=== PATIENT | male | born 1955 | race Caucasian/White ===

== ENCOUNTER 2018-07-09 10:16 | Observation (INO) | payer BC ==
[2018-07-08 12:35] VITALS: BMI 34.5
--- NOTE | 2018-07-09 08:15 | HP ---
HISTORY OF PRESENT ILLNESS: Mr. Pereyra returns to our office due to low back pain, continued symptoms of neurogenic claudication. The patient states that since his last visit in 2016, he was getting some injections, which helped for a period of time. However, the most recent series has not been beneficial at all. The patient states that he cannot stand for more than a minute without having to lean on something or sit down due to the pain going down both legs. The patient has to take breaks when he walks to the [employer] where he works. He is also complaining about balance and clumsy fingers. The patient states that it takes him some time to do the buttons on the top of his collar, and just the other day, he was unable to thread a needle. The patient states that the thumb on the left hand is numb. REVIEW OF SYSTEMS: A 10-point review of systems has been completed and is negative other than stated in the above HPI. PAST MEDICAL HISTORY: Hep C, kidney failure, IBS, knee problem, sleep apnea, cancer, stomach disease. SURGICAL HISTORY: Tonsils, knee surgery, vasectomy, lumbar spinal fusion in 2011, kidney cancer removal, left shoulder repair, ulcer repair. FAMILY HISTORY: Father was at 74, diagnosed with cancer. Mother at 60, diagnosed with cancer. Children alive. SOCIAL HISTORY: Smoking, the patient is a smoker. Drinks alcohol. Does not use any other illicit drugs. He is sexually active. , with 4 children. director regulatory compliance. MEDICATIONS: 1. Meloxicam. 2. Zanaflex. 3. [place]. ALLERGIES: NO KNOWN DRUG ALLERGIES. PHYSICAL EXAMINATION: HEENT. Head is normocephalic and atraumatic. Extraocular movements are intact. Hearing is intact. Moist mucous membranes. NECK: Normal, soft, supple. No masses are noted. Range of motion is intact, nonpainful. NEUROLOGIC: Awake, alert, oriented x3. Memory, attention, fund of knowledge, and language are normal. Cranial nerves; cranial nerves are grossly intact. Upper extremities 5/5 bilateral strength, wrist extension, finger extension, finger intrinsics. 4/5 bilateral deltoids. 4+/5 left biceps, triceps. Sensation equal bilaterally. Reflexes are symmetric, brisk. Lower extremities, normal. Does not disclose any focal motor weakness or deep tendon asymmetry. 5/5 bilateral hip flexion, knee flexion, knee extension, dorsiflexion, plantar flexion, EHL. Negative Babinski's. No ankle clonus bilaterally. Brisk patellar reflexes. Tender over right SI joint. IMAGING: MRI of the lumbar spine, severe stenosis at L1-L2, L2-L3, L3-L4. Dr. Pineda has offered surgery due to adjacent segment disease, L1 through L3. Job ID: [id number]
[2018-07-09] MEDS ORDERED: Fentanyl 100 MCG/2 ML VIAL ONE ×2 (10:42→17:10)
[2018-07-09] MEDS ORDERED: Ketamine 50 MG/ML (10ML VIAL) ONE (11:11)
[2018-07-09 11:15] LABS: #Basophils 0.1 thou/uL (0.0-0.2); #Eosinphils 0.7 thou/uL (0.0-0.7); #Lymphocytes 1.7 thou/uL (1.20-3.40); #Monocytes 0.9 thou/uL (0.11-0.59); #Neutrophils 4.3 thou/uL (1.40-6.50); %Basophils 0.9 % (0.0-1.0); %Eosinophils 8.8 % (0.0-10.0); %Monocytes 11.4 % (0.0-10.0); %Neutrophils 56.9 % (42.0-75.0); Mean Corpuscular HGB CONC 32.3 g/dL (32.0-36.0); Mean Corpuscular Hemoglobin 29.2 pg (27.0-31.0); Mean Corpuscular Volume 90.4 fL (78.0-98.0); Mean Platelet Volume 6.2 fL (7.4-10.4); Platelet Count 341 thou/uL (130-400); RBC Distribution Width 13.1 % (11.5-14.5); Red Blood Cell (RBC) Count 5.46 mill/uL (4.70-6.10); White Blood Cell (WBC) Count 7.6 thou/uL (4.8-10.8)
[2018-07-09] MEDS ORDERED: Thrombin 5000 UNITS/5 ML VIAL ONE (11:19)
[2018-07-09] MEDS ORDERED: Bupivacaine HCl 0.5%/Epinephrine 1:200,000/PF 30 ml Vial ONE (11:19)
[2018-07-09] MEDS ORDERED: Sodium Chloride 0.9% 10 ML ONE (11:19)
[2018-07-09 11:20] LABS: PTT 28.2 SEC (22.9-36.1); Prothrombin Time 13.5 SEC (12.0-14.7)
[2018-07-09 11:53] LABS: Anion Gap 12 mmol/L (10-20); BUN (Urea Nitrogen) 19 mg/dL (8.4-25.7); Calc. Creatinine Clearance 134 mL/min (70-130); Calcium 9.6 mg/dL (7.8-10.44); Carbon Dioxide 29 mmol/L (22-29); Chloride 103 mmol/L (98-107); Estimated GFR-MDRD 88; Glucose 99 mg/dL (70-105); Potassium 4.3 mmol/L (3.5-5.1); Sodium 140 mmol/L (136-145)
[2018-07-09] MEDS ORDERED: HYDROmorphone 2 MG/ML VIAL ONE ×2 (12:35→17:58)
[2018-07-09] MEDS ORDERED: PHENYLEPHRINE-NS 100 MCG/ML 10 ML SYRINGE ONE ×3 (12:52→15:19)
[2018-07-09] MEDS ORDERED: Phenylephrine HCL 10 MG/ML VIAL ONE (13:48)
[2018-07-09] MEDS ORDERED: Ondansetron PF 4 MG/2 ML Vial ONE ×3 (14:32→15:19)
[2018-07-09] MEDS ORDERED: ePHEDrine 50 MG/ML VIAL ONE (15:19)
[2018-07-09] MEDS ORDERED: Dexamethasone 20 MG/5 ML VIAL ONE (15:19)
[2018-07-09] MEDS ORDERED: Lidocaine 1% PF 5 ML VIAL ONE (15:19)
[2018-07-09] MEDS ORDERED: Rocuronium Bromide 10 MG/ML (10ML VIAL) ONE (15:19)
[2018-07-09] MEDS ORDERED: Glycopyrrolate 0.2 MG/ML 5 ML SYRINGE ONE ×2 (15:19)
[2018-07-09] MEDS ORDERED: PROPOFOL 200 MG/20 ML VIAL ONE (15:19)
[2018-07-09] MEDS ORDERED: Sodium Chloride 0.9% 20 ML ONE (15:29)
[2018-07-09] MEDS ORDERED: SUGAMMADEX SODIUM 200 MG/2 ML VIAL ONE (15:39)
[2018-07-09] MEDS ORDERED: Morphine 2 MG/ML SYRINGE SLOW IVP PRN (16:43)
[2018-07-09] MEDS ORDERED: diphenhydrAMINE 50 MG/ML VIAL IVP PRN (16:43)
[2018-07-09] MEDS ORDERED: HYDROcodone/Acetaminophen 10/325 mg Tablet PO PRN (16:43)
[2018-07-09] MEDS ORDERED: Acetaminophen/Codeine 30-300mg Tablet PO PRN ×2 (16:43)
[2018-07-09] MEDS ORDERED: Bisacodyl 10 MG SUPP PR PRN (16:43)
[2018-07-09] MEDS ORDERED: Mag-Al 1200 mg/1200 mg/30 ML UDCUP PO PRN (16:43)
[2018-07-09] MEDS ORDERED: diphenhydrAMINE 25 MG CAP PO PRN (16:43)
[2018-07-09] MEDS ORDERED: Ondansetron PF 4 MG/2 ML Vial IVP PRN (16:43)
[2018-07-09] MEDS ORDERED: traMADol HCl 50 MG TAB PO PRN ×2 (16:43)
[2018-07-09] MEDS ORDERED: Acetaminophen 650 MG Suppository PR PRN (16:43)
[2018-07-09] MEDS ORDERED: Milk Of Magnesia 30 ML UDCUP PO PRN (16:43)
[2018-07-09] MEDS ORDERED: Promethazine 25 MG TAB PO PRN (16:43)
[2018-07-09] MEDS ORDERED: Promethazine HCl 12.5 MG SUPP PR PRN (16:43)
[2018-07-09] MEDS ORDERED: Acetaminophen 325 MG TAB PO PRN (16:43)
[2018-07-09] MEDS ORDERED: Promethazine HCl 25 MG/ML VIAL IM PRN (16:43)
[2018-07-09] MEDS ORDERED: Scopolamine 1.5 mg/72 hour Patch TD SCH (16:45)
[2018-07-09] MEDS: tiZANidine HCl 4 MG TAB PO PRN (20:22)
[2018-07-09] MEDS: Sodium Chloride 0.9% 1,000 ML IV SCH (20:57)
[2018-07-09] MEDS: HYDROcodone/Acetaminophen 10/325 mg Tablet PO PRN (22:34)
--- NOTE | 2018-07-09 23:55 | OP ---
DATE OF PROCEDURE: 07/09/2018 SENIOR BUDGET ANALYST: None. PREOPERATIVE INDICATION: Treat pain and prevent neurological deterioration. PREOPERATIVE DIAGNOSIS: Prior L4 to S1 fusion, multilevel lumbar stenosis above fusion at L1-L2, L2-L3 and L3-L4 with severe neurogenic claudication. POSTOPERATIVE DIAGNOSIS: Prior L4 to S1 fusion, multilevel lumbar stenosis above fusion at L1-L2, L2-L3 and L3-L4 with severe neurogenic claudication. PROCEDURES PERFORMED: Decompressive laminectomy, medial facetectomy, foraminotomy, L1-L2, L2-L3, L3-L4. PREOPERATIVE MEDICATIONS: Ancef 2 g IV. DRAIN NUMBER: Zero. DRAIN TYPE: None. DESCRIPTION OF PROCEDURE: The patient was brought to the operating room. General endotracheal anesthesia was induced. The patient was positioned prone on the operating table with his chest and hips supported by gel-filled chest rolls. A lateral fluoro radiograph was used to plan our incision. The lumbar skin was sterilely prepped and draped. We marked out an incision that extended his previous incision superiorly. We opened this with a 10 blade knife. We controlled bleeding with gentle bipolar cautery. We opened subcutaneous tissues with a monopolar cautery to the thoracodorsal fascia. We incised the fascia in midline and reflected the paraspinal muscles off the spinous process and lamina of L1 to L3. Self-retaining retractors were placed. A lateral fluoro radiograph confirmed the levels upon which we were operating. We then used an Adson rongeur to remove most of the L1, all of the L2, all of the L3 spinous process. We identified the inferior margin of the L3 lamina with angled curette, and using 3 mm Kerrison rongeur, we fashioned a laminectomy from there all the way up to L1. Due to scar tissue in the area, we had to bring the operative microscope in and complete our decompression inferiorly. Under microscopic magnification and using microsurgical techniques, we carefully drilled away the remnants of the L4 lamina. We worked our way down the lamina with a 3 mm Kerrison rongeur. Once we had the canal open all the way to the scar tissue beneath the L4 lamina, we widened our laminectomy defect by performing medial facetectomies with Kerrison rongeurs. We removed overgrown facet and yellow ligament at each of the interspaces until the traversing and exiting L2, L3, and L4 nerve roots were well decompressed. We performed foraminotomies over the exiting nerve roots. During our dissection of the right side at L3-L4, the dura was densely adherent to the disk space and there was disk material inferiorly, it was also adherent to the medial portion of the pedicle and the facet joint. During our dissection there, we encountered a durotomy. Using microsurgical techniques and a 6-0 Prolene, we closed this durotomy in an interrupted fashion. We then removed herniated disk contents from under the dura into the lateral recess, was well decompressed, and the L4 nerve root was under no stretch whatsoever. We irrigated copiously with bacitracin irrigation. We waxed the bone edges. We applied a Valsalva and saw no further CSF egress. We reinforced our closure with DuraSeal tissue sealant. This was after copious amounts of bacitracin irrigation. We treated the wound with vancomycin powder and we closed the wound in anatomical layers. We applied sterile dressing. This was a clean case, no contamination. Job ID: [id number]
[2018-07-10] MEDS: CEFAZOLIN 2 GM in Premix Bag 1 BAG IVPB SCH ×2 (02:04→11:21)
[2018-07-10] MEDS: Sodium Chloride 0.9% 1,000 ML IV SCH (04:12)
[2018-07-10] MEDS ORDERED: Tamsulosin HCl 0.4 MG CAP PO SCH (06:00)
[2018-07-10] MEDS: HYDROcodone/Acetaminophen 10/325 mg Tablet PO PRN ×2 (06:28→11:19)
--- NOTE | 2018-07-10 06:57 | PRG ---
DATE OF SERVICE: 07/10/2018 I saw Mr. Pereyra in his hospital room this morning. He is one day out from repeat lumbar decompression, this surgery above the previously fused segments. Overnight, his head of bed was flat due to durotomy closure, and he has been doing well. He reports his legs feel better than the day before surgery. He has not been walking yet. I do not see any fevers recorded. His blood pressure was little low this morning. On examination, he has good motor and sensory function in the lower extremities. In fact, his sensation in the legs is better than it was before surgery. Plan today is to raise his head of bed and let him eat breakfast and ambulate. When he is safe for his activities of daily living, he can be discharged. I anticipate that would happen around lunchtime today. I went over home going restrictions, activity modifications, wound care, and followup. Job ID: [id number]
--- NOTE | 2018-07-10 08:17 | PDOC.PN ---
- Subjective Encounter Start Date: 07/10/18 Encounter Start Time: 10:15 Subjective: Patient doing well. Ambulating without difficulty. Feeling better than -: before surgery. No Fever. No Neuro signs. No N/V. No SOB or chest pain. -: Off O2 now and sating 95%. - Objective MAR Reviewed: Yes Vital Signs & Weight: Vital Signs (12 hours) Temp Pulse Resp BP Pulse Ox 07/10/18 03:10 97.6 F 60 18 98/59 L 95 07/09/18 23:57 97.9 F 71 18 93/53 L 94 L 07/09/18 20:47 97.8 F 78 18 121/74 94 L Weight Weight 234 lb I&O: 07/09/18 07/10/18 07/11/18 06:59 06:59 06:59 Intake Total 320 Output Total 750 Balance -430 Result Diagrams: 07/10/18 08:29 07/10/18 08:29 Phys Exam - Physical Examination Constitutional: NAD HEENT: moist MMs Respiratory: no wheezing, no rales, no rhonchi, clear to auscultation bilateral Cardiovascular: RRR, no significant murmur Gastrointestinal: soft, positive bowel sounds Musculoskeletal: no edema back with dressing C/D/I Neurological: non-focal, moves all 4 limbs Psychiatric: normal affect, A&O x 3 Dx/Plan (1) Hepatitis C Code(s): B19.20 - UNSPECIFIED VIRAL HEPATITIS C WITHOUT HEPATIC COMA Status: Chronic (2) PUD (peptic ulcer disease) Code(s): K27.9 - PEPTIC ULC, SITE UNSP, UNSP AC OR CHR, W/O HEMOR OR PERF Status: Chronic Comment: keep on PPI (3) Irritable bowel syndrome (IBS) Status: Chronic (4) JYOTHI (obstructive sleep apnea) Code(s): G47.33 - OBSTRUCTIVE SLEEP APNEA (ADULT) (PEDIATRIC) Status: Chronic Comment: Patient is on O2 since surgery, try and wean, if not able may need further workup - Plan cont current plan of care, PT/OT, out of bed/ambulate Patient cleared to discharge from out standpoint. -: D/C when ok with primary team. * . - Discharge Day Encounter end time: 10:30
[2018-07-10] MEDS: tiZANidine HCl 4 MG TAB PO PRN (08:51)
[2018-07-10 09:09] LABS: #Eosinphils 0.1 thou/uL (0.0-0.7); #Lymphocytes 1.3 thou/uL (1.20-3.40); #Monocytes 1.9 thou/uL (0.11-0.59); %Basophils 0.2 % (0.0-1.0); %Eosinophils 0.3 % (0.0-10.0); %Lymphocytes 7.2 % (21.0-51.0); %Monocytes 10.5 % (0.0-10.0); %Neutrophils 81.9 % (42.0-75.0); Hemoglobin 13.9 g/dL (14.0-18.0); Mean Corpuscular HGB CONC 31.8 g/dL (32.0-36.0); Mean Corpuscular Hemoglobin 29.4 pg (27.0-31.0); Mean Corpuscular Volume 92.4 fL (78.0-98.0); Platelet Count 338 thou/uL (130-400); Red Blood Cell (RBC) Count 4.73 mill/uL (4.70-6.10); White Blood Cell (WBC) Count 18.3 thou/uL (4.8-10.8)
[2018-07-10 09:20] LABS: Anion Gap 13 mmol/L (10-20); BUN (Urea Nitrogen) 18 mg/dL (8.4-25.7); Calc. Creatinine Clearance 136 mL/min (70-130); Carbon Dioxide 27 mmol/L (22-29); Chloride 103 mmol/L (98-107); Estimated GFR-MDRD 90; Glucose 111 mg/dL (70-105); Potassium 4.5 mmol/L (3.5-5.1); Sodium 138 mmol/L (136-145)
[2018-07-10 11:41] VITALS: BP 113/72; TEMP 98.8
== END 2018-07-10 12:57 | disposition home or self-care (01) ==
LOC: SDC 10:16 → SJJU 16:43
PROVIDERS: ADMIT Neurological Surgery; ATTEND Neurological Surgery
PROC: 01NB0ZZ Release Lumbar Nerve, Open Approach (ICD-10-PCS; principal; 2018-07-09)
DX: M48.062 Spinal stenosis, lumbar region with neurogenic claudication (principal); K58.9 Irritable bowel syndrome, unspecified; F17.290 Nicotine dependence, other tobacco product, uncomplicated; G47.33 Obstructive sleep apnea (adult) (pediatric); B18.2 Chronic viral hepatitis C; K27.9 Peptic ulcer, site unspecified, unspecified as acute or chronic, without hemorrhage or perforation; Z79.1 Long term (current) use of non-steroidal anti-inflammatories (NSAID); Z79.899 Other long term (current) drug therapy; Z88.5 Allergy status to narcotic agent; Z98.1 Arthrodesis status
CPT/HCPCS: 36415; 76000; 80048; 83880; 85025; 85610; 85730; 96365; 96366; G0378; J0131; J0670; J0690; J1100; J1170; J2001; J2370; J2405; J2704; J3010; J3370; J3490

== ENCOUNTER 2018-12-18 07:10 | Inpatient (IN) | payer BC ==
--- NOTE | 2018-12-16 21:02 | HP ---
HISTORY OF PRESENT ILLNESS: Mr. Pereyra is known to our office. He is recovering from L1 through L4 laminectomy above his prior fusion. He has had a superficial infection, which has not cleared up and he is pleased with his surgical results. He states that his leg pains are gone; however, he would like to discuss surgical options for his cervical spine. He states that his balance has been deteriorating. He has known severe spinal stenosis at C3-C4 and C5-C6. His back pain was so severe, that he wanted to proceed with that intervention first and is now ready to discuss cervical intervention. REVIEW OF SYSTEMS: A 10-point review of systems has been completed and is negative other than stated in the above HPI. PAST MEDICAL HISTORY: Possible hepatitis C, kidney failure, IBS, knee problems, sleep apnea, cancer, stomach disease. PAST SURGICAL HISTORY: Tonsillectomy, knee surgery, vasectomy, lumbar spinal fusion, lumbar laminectomy, kidney cancer removal, left shoulder repair, ulcer surgery. FAMILY HISTORY: Father is , diagnosed with cancer. Mother is , diagnosed with cancer. SOCIAL HISTORY: The patient is a smoker. Drinks alcohol on occasion. Does not use any illicit drugs. Sexually active, and . MEDICATIONS: 1. Meloxicam. 2. Zanaflex. 3. [place]. ALLERGIES: NO KNOWN DRUG ALLERGIES. PHYSICAL EXAMINATION: CONSTITUTIONAL: He is awake, alert, and oriented x3. NEUROLOGIC: Speech is spontaneous and fluent. Cranial nerves are grossly intact. RESPIRATIONS: Normal work of breathing on room air. EXTREMITIES: Upper extremities, 5/5 bilateral strength in wrist extension, finger extension, finger intrinsics, 4/5 bilateral deltoids, 4+/5 left biceps and triceps. Sensation equal bilaterally. Reflexes symmetric. Gait and station; tandem gait is off balance. Sensory, right greater than left numbness. IMAGING DATA: MRI, C3-4 and C5-6 cord compression, mild to moderate degenerative disk disease at C4-C5 and C6-C7. Flexion-extension x-rays are stable. ASSESSMENT AND PLAN: Cervical stenosis with myelopathy. Dr. Pineda has offered surgery. Now, he has healed well from his lumbar surgery. We are offering cervical ACDF at C3-C4 and C5-C6. The patient states that he understands the risks and is willing to proceed with surgery. Job ID: [id number]
[2018-12-17 08:51] VITALS: BMI 35.9
[2018-12-18 07:58] LABS: #Basophils 0.1 thou/uL (0.0-0.2); #Eosinphils 0.5 thou/uL (0.0-0.7); #Lymphocytes 1.5 thou/uL (1.20-3.40); #Monocytes 0.8 thou/uL (0.11-0.59); #Neutrophils 4.3 thou/uL (1.40-6.50); %Basophils 1.5 % (0.0-1.0); %Eosinophils 6.8 % (0.0-10.0); %Lymphocytes 20.8 % (21.0-51.0); %Monocytes 11.5 % (0.0-10.0); %Neutrophils 59.5 % (42.0-75.0); Hemoglobin 16.8 g/dL (14.0-18.0); Mean Corpuscular HGB CONC 33.4 g/dL (32.0-36.0); Mean Corpuscular Hemoglobin 29.8 pg (27.0-31.0); Platelet Count 286 thou/uL (130-400); RBC Distribution Width 13.3 % (11.5-14.5); Red Blood Cell (RBC) Count 5.66 mill/uL (4.70-6.10); White Blood Cell (WBC) Count 7.2 thou/uL (4.8-10.8)
[2018-12-18 08:06] LABS: PTT 28.2 SEC (22.9-36.1); Prothrombin Time 13.2 SEC (12.0-14.7)
[2018-12-18 08:18] LABS: Anion Gap 10 mmol/L (10-20); BUN (Urea Nitrogen) 18 mg/dL (8.4-25.7); Calc. Creatinine Clearance 129 mL/min (70-130); Calcium 9.7 mg/dL (7.8-10.44); Carbon Dioxide 27 mmol/L (23-31); Chloride 104 mmol/L (98-107); Estimated GFR-MDRD 82; Glucose 101 mg/dL (80-115); Potassium 3.9 mmol/L (3.5-5.1); Sodium 137 mmol/L (136-145)
[2018-12-18] MEDS ORDERED: Thrombin 5000 UNITS/5 ML VIAL ONE (09:02)
[2018-12-18] MEDS ORDERED: Sodium Chloride 0.9% 10 ML ONE ×2 (09:02→16:03)
[2018-12-18] MEDS ORDERED: Fentanyl 100 MCG/2 ML VIAL ONE ×2 (09:05→14:29)
[2018-12-18] MEDS ORDERED: HYDROmorphone 2 MG/ML VIAL ONE (11:40)
[2018-12-18] MEDS ORDERED: Promethazine HCl 25 MG/ML VIAL SLOW IVP PRN (13:52)
[2018-12-18] MEDS ORDERED: HYDROmorphone 2 MG/ML VIAL SLOW IVP PRN (13:52)
[2018-12-18] MEDS ORDERED: PACU-Morphine 4MG/ML VIAL SLOW IVP PRN (13:52)
[2018-12-18] MEDS ORDERED: Ondansetron HCl/PF 4 MG/2 ML Vial IVP PRN (13:52)
[2018-12-18] MEDS ORDERED: Morphine Sulfate 2 MG/ML SYRINGE SLOW IVP PRN (13:52)
[2018-12-18] MEDS ORDERED: Promethazine HCl 25 MG/ML VIAL IM PRN (13:52)
[2018-12-18] MEDS ORDERED: Meperidine HCl/PF 25 MG/ML VIAL SLOW IVP PRN (13:52)
--- NOTE | 2018-12-18 15:06 | OP ---
DATE OF PROCEDURE: 12/18/2018 FLAGMAN: Barbara Whitaker PA-C PREOPERATIVE INDICATION: Prevent neurological deterioration. PREOPERATIVE DIAGNOSES: Cervical intervertebral disk disease with cord compression and myelopathy, C3-C4 and C5-C6. POSTOPERATIVE DIAGNOSES: Cervical intervertebral disk disease with cord compression and myelopathy, C3-C4 and C5-C6. PROCEDURES PERFORMED: 1. Anterior cervical diskectomy, intervertebral arthrodesis, placement of intervertebral biomechanical device, anterior cervical plating, C3-C4 and C5-C6 (two separate plates). 2. Local morselized autograft. 3. Morselized allograft. 4. Operating microscope. PREOPERATIVE MEDICATIONS: Ancef 2 g IV. DRAIN NUMBER: Zero. DRAIN TYPE: None. DESCRIPTION OF PROCEDURE: The patient was brought to the operating room. General endotracheal anesthesia was induced. The patient was positioned on the operating table with his head supported by a gel-filled donut-shaped headrest. A lateral fluoro radiograph was used to plan our incision. The right side of the neck was sterilely prepped and draped. We opened it with a 10 blade knife and controlled bleeding with bipolar cautery. We dissected sharply to the platysma and we cut this muscle in line with our incision. We continued our dissection medial to the sternocleidomastoid and lateral to the trachea and esophagus. We arrived to the prevertebral space. We put a marker on the anterior surface of the spine and took a lateral fluoro radiograph to confirm the level upon which we were operating. We then elevated the longus colli muscles off the anterior surface of C3, C4, as well as C5, and C6. Self-retaining retractors placed under the longus colli muscles at C3-C4 and distraction pins placed in both of the vertebrae. We distracted it across the interspace and incised the interspace with a 15 blade knife. We removed disks with curettes and rongeurs. As we approached the posterior longitudinal ligament, the operating microscope was brought into the field. Under microscopic magnification using microsurgical techniques, we removed the remainder of the intervertebral disk. We accessed the ventral epidural space with a micro curette, we removed posterior osteophytes and posterior longitudinal ligament across the entire interspace from the neural foramen on the left all the way to the right. We decompressed the dura entirely. We then turned our attention to arthrodesis. Using curettes, we prepared the endplates for grafting. Using a bone rasp, we measured the height of the interspace to 8 mm. An 8-mm PEEK intervertebral graft was brought into the field. The osteophytes removed during our decompression were carefully cleaned off soft tissue attachments, morselized, and added into demineralized bone matrix as our fusion substrate. The substrate was packed in the center of our PEEK graft and the PEEK graft was advanced into the interspace under radiographic guidance to the appropriate depth. We then removed our distraction pins and removed our lateral retractors down to C5-C6. In a similar fashion, we placed distraction pins in the vertebrae, distracted it across the interspace, and incised it with a 15 blade knife. We removed disk contents here with curettes and rongeurs. We continued under the operating microscope to remove posterior longitudinal ligament and posterior osteophytes across the entire interspace from one neural foramen to the other. There was excellent dural decompression. We then prepared our endplates for grafting with curettes. We measured the height of this interspace to 8 mm as well. A second 8-mm PEEK intervertebral graft was brought into the field. This was loaded with demineralized bone matrix and morselized autograft and advanced into the interspace under radiographic guidance to the appropriate depth. We then removed our distraction pins. The operating microscope was taken out of the field. We brought 2 separate anterior cervical plates into the field. A 12-mm plate was used at C5-C6. We affixed this plate of C5 and C6 using 14 mm screws. We drilled airline transport pilot holes through the plate and then attached the plate with the fixed angle screws at C6 and variable angle screws at C5. We engaged the locking mechanism over each of these 4 screws. In a similar fashion, we brought a 14-mm anterior cervical plate into the field and affixed it to C3 and C4 by drilling airline transport pilot holes and then placing fixed angle screws through the plate into C4 and variable angle screws into C3. We engaged the locking mechanism over each of these 4 screws. AP and lateral fluoro radiographs confirmed adequate positioning of our instrumentation. We irrigated copiously with bacitracin irrigation. We closed the wound in anatomical layers and we applied a sterile dressing. This was a clean case, no contamination. Job ID: [id number]
[2018-12-18] MEDS ORDERED: Sodium Chloride For Inhalation 0.9% 3 ML NEB ONE (15:08)
[2018-12-18] MEDS ORDERED: tiZANidine HCl 4 MG TAB ONE (15:54)
[2018-12-18] MEDS ORDERED: HYDROcodone/Acetaminophen 5/325 mg Tablet ONE ×2 (16:03→18:02)
== END 2018-12-18 18:08 | disposition home or self-care (01) | DRG 472 ==
LOC: SURG A 07:10
PROVIDERS: ADMIT Neurological Surgery; ATTEND Neurological Surgery
PROC: 0RG20A0 Fusion of 2 or more Cervical Vertebral Joints with Interbody Fusion Device, Anterior Approach, Anterior Column, Open Approach (ICD-10-PCS; principal; 2018-12-18)
PROC: 0RB30ZZ Excision of Cervical Vertebral Disc, Open Approach (ICD-10-PCS; 2018-12-18)
DX: M48.02 Spinal stenosis, cervical region (principal); M50.01 Cervical disc disorder with myelopathy, high cervical region; F17.200 Nicotine dependence, unspecified, uncomplicated; G47.30 Sleep apnea, unspecified
CPT/HCPCS: 36415; 76000; 80048; 85025; 85610; 85730; 93005; 93010; C1713; C1776; J0690; J1170; J3010; J3490; L0174

== ENCOUNTER 2024-01-19 11:00 | Inpatient (IN) | payer BC, MEDICARE ==
[2024-01-21 12:26] VITALS: BMI 34.7
[2024-01-27] MEDS ORDERED: diphenhydrAMINE 50 MG/ML VIAL IVP PRN (06:40)
[2024-01-27] MEDS ORDERED: Ondansetron PF 4 MG/2 ML Vial IVP PRN (06:40)
[2024-01-27] MEDS ORDERED: Mag-Al 1200 mg/1200 mg/30 ML UDCUP PO PRN (06:40)
[2024-01-27] MEDS ORDERED: Acetaminophen/Codeine 30-300mg Tablet PO PRN (06:40)
[2024-01-27] MEDS ORDERED: Milk Of Magnesia 30 ML UDCUP PO PRN (06:40)
[2024-01-27] MEDS ORDERED: HYDROcodone/Acetaminophen 7.5/325 mg Tablet PO PRN (06:40)
[2024-01-27] MEDS ORDERED: Lidocaine 1% PF 5 ML VIAL ONE (06:41)
[2024-01-27] MEDS ORDERED: Dexamethasone 20 MG/5 ML VIAL ONE (06:41)
[2024-01-27] MEDS ORDERED: Glycopyrrolate 0.2 MG/ML 5 ML SYRINGE ONE (06:41)
[2024-01-27] MEDS ORDERED: PHENYLEPHRINE-NS 100 MCG/ML 10 ML SYRINGE ONE ×5 (06:41→14:23)
[2024-01-27] MEDS ORDERED: Ondansetron PF 4 MG/2 ML Vial ONE ×2 (06:41→14:56)
[2024-01-27] MEDS ORDERED: fentaNYL PF 100 MCG/2 ML SYRINGE ONE (06:42)
[2024-01-27] MEDS ORDERED: EPINEPHrine 1 MG/ML VIAL ONE (06:42)
[2024-01-27] MEDS ORDERED: Bupivacaine PF 0.5% 30 ML VIAL ONE (06:42)
[2024-01-27] MEDS ORDERED: Midazolam HCl 2 mg/2 ml Vial ONE (06:42)
[2024-01-27] MEDS ORDERED: Thrombin 5000 UNITS/5 ML VIAL ONE (06:42)
[2024-01-27] MEDS ORDERED: PROPOFOL 20 ML ONE ×2 (06:42→08:07)
[2024-01-27] MEDS ORDERED: HYDROmorphone 2 MG/ML VIAL ONE ×2 (06:42→10:16)
[2024-01-27] MEDS ORDERED: SUCCINYLCHOLINE/SOD CL,ISO/PF 200 MG/10 ML SYRINGE FS ONE (06:46)
[2024-01-27] MEDS ORDERED: Rocuronium Bromide 10 MG/ML (10ML VIAL) ONE ×3 (06:46→11:40)
[2024-01-27] MEDS ORDERED: Lidocaine 1% (PF) 30 ML VIAL ONE (06:50)
[2024-01-27] MEDS ORDERED: Bacitracin Zinc Ointment 30 gm TUBE ONE (06:50)
[2024-01-27] MEDS ORDERED: CEFAZOLIN 2 GM VIAL ONE (07:07)
[2024-01-27] MEDS ORDERED: SUGAMMADEX SODIUM 200 MG/2 ML VIAL ONE (14:27)
[2024-01-27] MEDS ORDERED: Phenol 177 ML BOT PO PRN (14:50)
[2024-01-27] MEDS ORDERED: CEFAZOLIN 2 GM in Sodium Chloride 0.9% 100 ML IVPB SCH ×2 (15:00→18:00)
[2024-01-27] MEDS ORDERED: fentaNYL 50 mcg/mL 1 mL Vial ONE ×2 (16:59→17:14)
[2024-01-27] MEDS ORDERED: HYDROmorphone 0.5 MG/0.5 ML SYRINGE ONE (17:32)
[2024-01-27] MEDS: CEFAZOLIN 2 GM in Sodium Chloride 0.9% 100 ML IVPB SCH ×2 (19:52→20:56)
[2024-01-27] MEDS: Pregabalin 75 MG CAP PO SCH (20:13)
[2024-01-27] MEDS: HYDROcodone/Acetaminophen 10/325 mg Tablet PO PRN (20:54)
[2024-01-27] MEDS: tiZANidine HCl 4 MG TAB PO PRN (20:54)
[2024-01-27] MEDS: Amlodipine 5 MG TAB PO SCH (21:00)
[2024-01-27] MEDS: Pantoprazole DR 40 MG TAB PO SCH (21:00)
[2024-01-27] MEDS: DULoxetine 30 MG CAP PO SCH (21:00)
[2024-01-27] MEDS ORDERED: Morphine 2 MG/ML VIAL SLOW IVP PRN (22:38)
[2024-01-28] MEDS: Dexamethasone 4 mg/ml Vial SLOW IVP SCH (01:54)
[2024-01-28] MEDS: Sodium Chloride 0.9% 1,000 ML IV SCH (01:56)
[2024-01-28] MEDS ORDERED: Fentanyl 100 MCG/2 ML VIAL SLOW IVP PRN (07:04)
[2024-01-28] MEDS: fentaNYL 50 mcg/mL 1 mL Vial SLOW IVP PRN (09:40)
[2024-01-29] MEDS: Melatonin 3 MG TAB PO PRN (00:32)
[2024-01-29 08:01] VITALS: TEMP 98.2
[2024-01-29 10:46] VITALS: BP 168/67
== END 2024-01-29 13:21 | disposition home or self-care (01) | DRG 472 ==
LOC: SURG A 01-27 06:39 → SURG B 01-27 18:28
PROVIDERS: ADMIT Neurological Surgery; ATTEND Neurological Surgery
PROC: 01N10ZZ Release Cervical Nerve, Open Approach (ICD-10-PCS; principal; 2024-01-27)
PROC: 0RG1071 Fusion of Cervical Vertebral Joint with Autologous Tissue Substitute, Posterior Approach, Posterior Column, Open Approach (ICD-10-PCS; 2024-01-27)
PROC: 00NW0ZZ Release Cervical Spinal Cord, Open Approach (ICD-10-PCS; 2024-01-27)
DX: M96.0 Pseudarthrosis after fusion or arthrodesis (principal); G99.2 Myelopathy in diseases classified elsewhere; M54.12 Radiculopathy, cervical region; M48.02 Spinal stenosis, cervical region; I10 Essential (primary) hypertension; G89.29 Other chronic pain; F10.90 Alcohol use, unspecified, uncomplicated; F17.200 Nicotine dependence, unspecified, uncomplicated; Z88.5 Allergy status to narcotic agent; Z79.899 Other long term (current) drug therapy
CPT/HCPCS: 93970; A4314; C1713; C1889; J0171; J0665; J1100; J2250; J2405; J2704; J3010; J7030

== ENCOUNTER 2024-01-21 11:57 | Outpatient (CLI) | payer BC, MEDICARE ==
[2024-01-21 14:15] LABS: #Basophils 0.13 10x3/uL (0.0-0.2); %Basophils 1.5 % (0.0-1.0); %Eosinophils 6.3 % (0.0-10.0); %Lymphocytes 17.3 % (21.0-51.0); %Monocytes 9.7 % (0.0-10.0); %Neutrophils 64.5 % (42.0-75.0); Hematocrit 51.5 % (42.0-52.0); Hemoglobin 16.4 g/dL (14.0-18.0); Mean Corpuscular HGB CONC 31.8 g/dL (32.0-36.0); Mean Corpuscular Hemoglobin 29.2 pg (27.0-31.0); Mean Corpuscular Volume 91.8 fL (78.0-98.0); Mean Platelet Volume 8.6 fL (7.4-10.4); Platelet Count 307 10x3/uL (130-400); RBC Distribution Width 13.7 % (11.5-14.5); Red Blood Cell (RBC) Count 5.61 mill/uL (4.70-6.10)
[2024-01-21 14:28] LABS: PTT 30.6 sec (22.9-36.1)
[2024-01-21 14:53] LABS: Anion Gap 15 mmol/L (10-20); BUN (Urea Nitrogen) 20 mg/dL (8.4-25.7); Calc. Creatinine Clearance 0 mL/min (70-130); Calcium 9.5 mg/dL (7.8-10.44); Carbon Dioxide 24 mmol/L (23-31); Chloride 107 mmol/L (98-107); Estimated GFR 91; Glucose 86 mg/dL (80-115); Potassium 4.4 mmol/L (3.5-5.1); Sodium 142 mmol/L (136-145)
== END 2024-01-21 11:58 | disposition home or self-care (01) ==
LOC: LABBT 11:57
PROVIDERS: ATTEND Neurological Surgery
DX: Z01.812 Encounter for preprocedural laboratory examination (principal); M54.12 Radiculopathy, cervical region; M48.02 Spinal stenosis, cervical region
CPT/HCPCS: 80048; 85025; 85610; 85730